=== PATIENT | male | born 1960 | race Caucasian/White ===

== ENCOUNTER 2018-12-26 09:30 | Outpatient (RCR) | payer OTHER, BC, SELFPAY | END 2018-12-26 09:35 | disposition home or self-care (01) | LOC: PT 09:30 | DX: M25.552 Pain in left hip (principal) | CPT/HCPCS: 97010; 97014; 97033; 97035; 97110; 97140; 97163; 97164; G0283 ==

== ENCOUNTER 2019-04-22 15:30 | Outpatient (RCR) | payer OTHER, SELFPAY | END 2019-04-22 15:35 | disposition home or self-care (01) | LOC: PT 15:30 | PROVIDERS: Visit Provider Physical Medicine & Rehabilitation | DX: M25.552 Pain in left hip (principal) | CPT/HCPCS: 97010; 97014; 97110; 97140; 97163; 97164; G0283 ==

== ENCOUNTER 2021-01-25 15:29 | Emergency (ER) | payer BC, SELFPAY ==
[2021-01-25 16:13] VITALS: BP 153/90; PULSE 78; RESP 19; TEMP 37.1; O2SAT 96; BMI 37.6
--- NOTE | 2021-01-25 17:03 | HMH.EDUTC ---
[facility] [place] Clinical Impression: Laceration Dog bite Qualifiers: Encounter type: initial encounter Qualified Code(s): W54.0XXA - Bitten by dog, initial encounter Disposition: Home, Self-Care Condition on Discharge: Good Instructions: DI for Dog Bite, Animal Bites, How to Care for a Laceration After Repair, Laceration Repair Additional Instructions: Suture instructions: You have required stitches today. Please read the following instructions so you know how to care for them: 1. Keep wound area dry for the first 24 hours. 2 May clean gently with mild soap and water, after 48 hours to prevent crusting over suture knots. 3. You may shower if your provider gives permission but do not take a bath until the skin is healed.. 4. Never leave a wet dressing or Band-Aid on your stitches as this allows bacteria to reach the area and may cause infection. Band-aids can cause the wound to sweat and not recommended to wear for long periods of time Watch for signs of infection: Increasing redness, tenderness or warmth around the suture site Unusual swelling around the site Appearance of pus around each suture or any red streaks Fever If you develop any of the above signs or symptoms of infection, Follow up with Family Physician immediately 5. Suture removal in _7-10___days 6. Return to [facility] or follow up with family doctor for removal. This can be done by any medical provider during regular hours on Sunday through Sunday, by appointment. Prescriptions: Amoxicillin/Potassium Clav [Augmentin 875-125 Tablet] 1 tab PO Q12H 7 Days #14 tab Prescription Printed Referrals: Ganga Polanco MD [Primary Care Provider] - As needed Time of Disposition: 17:56 Medical Decision Making - Jairo Inquiry Pt receiving controlled substance: No Jairo was queried for this patient: No Vital Signs: 01/25/21 16:13 Temperature 98.8 F Temperature Source Oral Pulse Rate [Left Radial] 78 Respiratory Rate 19 Blood Pressure [Right Arm] 153/90 H Blood Pressure Mean [Right Arm] 111 Blood Pressure Source [Right Arm] Automatic Cuff Blood Pressure Position [Right Arm] Sitting 02 Sat by Pulse Oximetry 96 Oxygen Delivery Method Room Air [facility] [place] HPI - General Stated complaint: AO 01/25 bite by dog both hands Time Seen by Provider: 01/25/21 17:03 Mode of Arrival: Ambulatory Source of Information: Patient Limitations: No Limitations Description of Symptoms (Recalled from Triage Doc. by RN): bilateral hand dog bite, states that a strange dog came into her yard and his friend was petting it and holding its collar while she called the scrap stripper hand when the dog started twisting his friend had and bite her so he tried to get her free from the dog when the dog bit his hands. HEENT Symptoms (Recalled from RN notes): No Resp Symptoms (Recalled from RN notes): No Skin Symptoms (Recalled from RN notes): Yes MS Symptoms (Recalled from RN notes): No Functional Status (Recalled from RN notes): na - History of Present Illness Provider Complaint: Patient states that he was trying to help a friend that was getting bitten by dog that came into her yard States that the dog bit him multiple times on both hands with large area on his right hand that is open States that he immediately applied pressure and came in to get it checked - Related Data Home Medications Medication Instructions Recorded Confirmed Hydrocod/Acet 5/325 mg [Dellrose 5 mg PO NEEDED PRN 02/01/18 02/01/18 5/325mg tablet] Sulfamethoxazole/Trimethoprim 1 mg * DIRECTED 02/01/18 02/01/18 [Sulfamethoxazole-Tmp Ds Tablet] allopurinoL [Allopurinol 100mg 100 mg PO DAILY 02/01/18 02/01/18 tablet] Previous Rx's Medication Instructions Recorded Ondansetron [Zofran 4mg ODT] 4 mg PO TIDP PRN #10 tab.rapdis 02/01/18 Oxycodone HCl/Acetaminophen 1 tab PO Q6HP PRN #15 tab 02/01/18 [Percocet 5/325mg tablet] Tamsulosin HCl [Flomax 0.4mg 0.4 mg PO HS #10 cap.er.24h 02/01/18
[2021-01-25 18:02] VITALS: BP 153/90; PULSE 78; RESP 19; TEMP 37.1; O2SAT 96
== END 2021-01-25 18:12 | disposition home or self-care (01) ==
LOC: ER 15:50 → UTC 15:53
PROVIDERS: Emergency Provider Nurse Practitioner; PCP Family Medicine
DX: S61.412A Laceration without foreign body of left hand, initial encounter (principal); S61.411A Laceration without foreign body of right hand, initial encounter; W54.0XXA Bitten by dog, initial encounter; Y92.89 Other specified places as the place of occurrence of the external cause
CPT/HCPCS: 12002; 99202; G0463

== ENCOUNTER 2024-05-27 14:41 | Emergency (ER) | payer OTHER, MEDICARE, BC, SELFPAY ==
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
[2024-05-27 14:53] VITALS: BP 168/104; BP 183/105; PULSE 79; PULSE 85; RESP 13; TEMP 36.6; O2SAT 97; O2SAT 98; BMI 36.2
[2024-05-27 15:00] VITALS: BP 192/103; PULSE 86; O2SAT 98
[2024-05-27 15:15] VITALS: BP 181/97; PULSE 80; O2SAT 95
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
[2024-05-27 15:30] VITALS: BP 178/94; PULSE 77; O2SAT 97
[2024-05-27 15:45] VITALS: BP 169/93; PULSE 74; O2SAT 98
[2024-05-27] MEDS: diphenhydrAMINE 25MG CAPSULE 50 MG PO (15:47)
[2024-05-27] MEDS: METHOCARBAMOL 500MG TABLET 500 MG PO (15:47)
[2024-05-27] MEDS: ACETAMINOPHEN 500MG TAB 1000 MG PO (15:48)
[2024-05-27] MEDS: IBUPROFEN 400 MG TABLET 800 MG PO (15:49)
[2024-05-27 16:43] VITALS: BP 177/99; PULSE 61; RESP 18; TEMP 36.6; O2SAT 96
== END 2024-05-27 16:44 | disposition home or self-care (01) ==
PROVIDERS: Emergency Provider Emergency Medicine; PCP Family Medicine
DX: M54.2 Cervicalgia (principal); V89.2XXA Person injured in unspecified motor-vehicle accident, traffic, initial encounter; Y93.89 Activity, other specified; Y92.488 Other paved roadways as the place of occurrence of the external cause
CPT/HCPCS: 70450; 72125; 99284